=== PATIENT | female | born 1985 | race Caucasian/White ===

== ENCOUNTER 2016-08-26 15:48 | Emergency (ER) | payer MEDICAID ==
[2016-08-26 16:09] VITALS: BP 124/78
--- NOTE | 2016-08-26 18:11 | EDM.PDOC ---
ED HPI GENERAL MEDICAL PROBLEM - General Chief Complaint: General Stated Complaint: RIGHT EYE FEELS DROOPY, TINGLY SENSATION IN FACE Time Seen by Provider: 08/26/16 16:30 Source of Information: Reports: Patient History Limitations: Reports: No Limitations - History of Present Illness INITIAL COMMENTS - FREE TEXT/NARRATIVE: Brittany is a 30 year old female who presents to the ED today with c/o right eye lid drooping and tingling in right 2nd and 3rd fingers this morning that has since resolved. Patient does endorse a hx of anxiety but has never been medicated. Patient denies current symptoms or headache. Patient denies any pertinent medical hx. 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 Psychiatric History: Reports: Anxiety - Past Surgical History Female Surgical History: Reports: Other (See Below) Other Female Surgeries/Procedures: ectopic Musculoskeletal Surgical History: Reports: Other (See Below) Other Musculoskeletal Surgeries/Procedures:: multiple back surgeries Social & Family History - Tobacco Use Smoking Status *Q: Never Smoker - Caffeine Use Caffeine Use: Reports: Coffee - Alcohol Use Days Per Week of Alcohol Use: 0 - Recreational Drug Use Recreational Drug Use: No ED ROS GENERAL - Review of Systems Review Of Systems: ROS reveals no pertinent complaints other than HPI. ED EXAM, GENERAL - Physical Exam Exam: See Below Exam Limited By: No Limitations General Appearance: Alert, WD/WN, No Apparent Distress Eye Exam: Bilateral Eye: EOMI, PERRL Ears: Normal External Exam, Normal Canal, Normal TMs Head: Atraumatic Neck: Normal Inspection, Supple, Non-Tender, Full Range of Motion Respiratory/Chest: No Respiratory Distress, Lungs Clear, Normal Breath Sounds Cardiovascular: Normal Peripheral Pulses, Regular Rate, Rhythm, No Murmur GI/Abdominal: Normal Bowel Sounds, Soft, Non-Tender Extremities: Normal Inspection Neurological: Alert, Oriented, CN II-XII Intact, Normal Cognition, Normal Gait, Normal Reflexes, No Motor/Sensory Deficits Psychiatric: Normal Affect, Normal Mood Skin Exam: Warm, Dry, Intact Lymphatic: No Adenopathy Course - Vital Signs Text/Narrative:: Brittany is an otherwise healthy 30 year old female who presents to the ED today after having some reported eye lid droop on right and right 2nd and 3rd digit finger tingling this morning that has since resolved. Patient on exam here is alert and oriented, she does not have any neuro/focal dificits on exam. Remaining exam is unremarkable. It is likely that patient's anxiety is playing a role in her symptoms. CT scan of head obtained and is negative for any acute intracranial findings. Blood work today including TSH, CMP, CBC are within normal limits. Patient did inquire medication for her anxiety. She lacks a PCP. I discussed anti-depressants with her. She is open to this. I will start patient on Celexa, 10 mg for a week followed by 20 mg daily. Side effects were discussed in detail. Patient will be given clinic info for here for f/u in one week. She is agreeable to plan of care, will return to the ED with any complications. Patient discharged in stable condition. Last Recorded V/S: Last Vital Signs Temp 36.3 C 08/26/16 16:10 Pulse 68 08/26/16 16:10 Resp 20 08/26/16 16:10 BP 124/78 08/26/16 16:10 Pulse Ox 99 08/26/16 16:10 - Orders/Labs/Meds Orders: Active Orders 24 hr Category Date Time Status Head wo Cont [CT] Stat Exams 08/26/16 16:56 Taken Labs: Laboratory Tests 08/26/16 08/26/16 08/26/16 Range/Units 17:07 17:07 17:07 WBC 6.3 (4.5-11.0) K/uL RBC 4.81 (3.30-5.50) M/uL Hgb 14.1 (12.0-15.0) g/dL Hct 42.0 (36.0-48.0) % MCV 87 (80-98) fL MCH 29 (27-31) pg MCHC 34 (32-36) % Plt Count 229 (150-400) K/uL Neut % (Auto) 70 H (36-66) % Lymph % (Auto) 18 L (24-44) % [place] % (Auto) 11 H (2-6) % Eos % (Auto) 1 L (2-4) % Baso % (Auto) 0 (0-1) % Sodium 142 (140-148) mmol/L Potassium 4.2 (3.6-5.2) mmol/L Chloride 104 (100-108) mmol/L Carbon Dioxide 27 (21-32) mmol/L Anion Gap 10.8 (5.0-14.0) mmol/L BUN 7 (7-18) mg/dL Creatinine 0.7 (0.6-1.0) mg/dL Est Cr Clr Drug Dosing 105.02 mL/min Estimated GFR (MDRD) > 60 (>60) Glucose 96 (74-106) mg/dL Calcium 8.6 (8.5-10.1) mg/dL Total Bilirubin 0.9 (0.2-1.0) mg/dL AST 13 L (15-37) U/L ALT 11 L (12-78) U/L Alkaline Phosphatase 79 (46-116) U/L Total Protein 7.7 (6.4-8.2) g/dL Albumin 4.0 (3.4-5.0) g/dL Globulin 3.7 H (2.3-3.5) g/dL Albumin/Globulin Ratio 1.1 L (1.2-2.2) TSH, Ultra Sensitive 1.356 (0.358-3.740) uIU/mL HCG, Qual Negative Departure - Departure Time of Disposition: 18:30 Disposition: Home, Self-Care 01 Condition: good Clinical Impression: Anxiety - Discharge Information Forms: ED Department Discharge Additional Instructions: Brittany, Please try the Celexa for anxiety as we discussed. Establish primary care, I would like you seen for follow up in the next couple of weeks. Nice meeting you and good luck with everything. - My Orders Last 24 Hours: My Active Orders 08/26/16 16:56 Head wo Cont [CT] Stat - Assessment/Plan Last 24 Hours: My Active Orders 08/26/16 16:56 Head wo Cont [CT] Stat
== END 2016-08-26 18:27 | disposition home or self-care (01) ==
LOC: JP.ED 15:48
DX: F41.9 Anxiety disorder, unspecified (principal); Z88.5 Allergy status to narcotic agent
CPT/HCPCS: 36415; 70450; 80053; 84443; 84703; 85025; 99284-25

== ENCOUNTER 2017-02-06 14:40 | Emergency (ER) | payer MEDICAID ==
[2017-02-06 15:55] VITALS: BP 132/83
--- NOTE | 2017-02-06 16:12 | EDM.PDOC ---
ED HPI GENERAL MEDICAL PROBLEM - General Chief Complaint: ENT Problem Stated Complaint: JAW/HEAD/EAR PAIN Time Seen by Provider: 02/06/17 16:08 Source of Information: Reports: Patient History Limitations: Reports: No Limitations - History of Present Illness INITIAL COMMENTS - FREE TEXT/NARRATIVE: pt arrived with left facial pain. She states it started this am and has been persistent. . She has not had a fever and is not blowing out purulent material Onset: Today, Other ( She had a similar episode a few days ago, ) Duration: Hour(s):, Waxing/Waning Location: Reports: Face Associated Symptoms: Reports: Other (left sided facial pain. 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 Psychiatric History: Reports: Anxiety - Infectious Disease History Infectious Disease History: Reports: Chicken Pox - Past Surgical History Female Surgical History: Reports: Other (See Below) Other Female Surgeries/Procedures: ectopic Musculoskeletal Surgical History: Reports: Other (See Below) Other Musculoskeletal Surgeries/Procedures:: multiple back surgeries Social & Family History - Tobacco Use Smoking Status *Q: Never Smoker Second Hand Smoke Exposure: No - Caffeine Use Caffeine Use: Reports: Coffee - Alcohol Use Days Per Week of Alcohol Use: 0 - Recreational Drug Use Recreational Drug Use: No ED ROS ENT - Review of Systems Review Of Systems: See Below Constitutional: Reports: Other (facial pain on the left. ) HEENT: Reports: Other ( pain on the left side of her face. ) Respiratory: Reports: No Symptoms Cardiovascular: Reports: No Symptoms Endocrine: Reports: No Symptoms GI/Abdominal: Reports: No Symptoms : Reports: No Symptoms Musculoskeletal: Reports: No Symptoms Skin: Reports: No Symptoms ED EXAM, ENT - Physical Exam Exam: See Below Text/Narrative:: pt arrived with left facial pain . She is rating her pain at a 7. Exam Limited By: No Limitations General Appearance: Alert, Anxious, Mild Distress, Other (pupils equal and reactive. ) Ears: Normal TMs, TM Perforation Nose: Normal Inspection Mouth/Throat: Normal Inspection Head: Atraumatic Neck: Normal Inspection Respiratory/Chest: No Respiratory Distress Cardiovascular: Regular Rate, Rhythm GI/Abdominal: Soft, Non-Tender (Female) Exam: Deferred Rectal (Female) Exam: Deferred Back: Normal Inspection Extremities: Normal Inspection Neurological: Alert, Oriented, Normal Cognition Psychiatric: Normal Affect Course - Vital Signs Last Recorded V/S: Last Vital Signs Temp 36.4 C 02/06/17 15:50 Pulse 71 02/06/17 15:50 Resp 16 02/06/17 15:50 BP 132/83 02/06/17 15:50 Pulse Ox 99 02/06/17 15:50 - Orders/Labs/Meds Orders: Active Orders 24 hr Category Date Time Status Sinus Less 3V [CR] Stat Exams 02/06/17 16:07 Taken Labs: Laboratory Tests 02/06/17 Range/Units 16:07 WBC 6.5 (4.5-11.0) K/uL RBC 4.66 (3.30-5.50) M/uL Hgb 13.7 (12.0-15.0) g/dL Hct 41.5 (36.0-48.0) % MCV 89 (80-98) fL MCH 29 (27-31) pg MCHC 33 (32-36) % Plt Count 202 (150-400) K/uL Neut % (Auto) 77 H (36-66) % Lymph % (Auto) 15 L (24-44) % [place] % (Auto) 7 H (2-6) % Eos % (Auto) 1 L (2-4) % Baso % (Auto) 0 (0-1) % Meds: Medications Discontinued Medications Generic Name Dose Route Start Last Admin Trade Name Freq PRN Reason Stop Dose Admin Ketorolac Tromethamine 60 mg 02/06/17 16:38 Toradol IM 02/06/17 16:39 ONETIME ONE - Re-Assessments/Exams Free Text/Narrative Re-Assessment/Exam: 02/06/17 16:44 wbc is normal, ontiveros view some clouding in the left maxillary sinus. She is tender over the left maxillary sinus. Departure - Departure Time of Disposition: 16:51 Disposition: Home, Self-Care 01 Condition: Fair Clinical Impression: Left maxillary sinusitis - Discharge Information Referrals: PCP,None [Primary Care Provider] - Forms: ED Department Discharge Care Plan Goals: cool mist humidifier, moist heat to left facial area. augmentin 875 1 tab bid, tordol 10mg q5h for the next 2-3 days as needed, - My Orders Last 24 Hours: My Active Orders 02/06/17 16:07 Sinus Less 3V [CR] Stat - Assessment/Plan Last 24 Hours: My Active Orders 02/06/17 16:07 Sinus Less 3V [CR] Stat
[2017-02-06] MEDS ORDERED: Ketorolac 60 MG/2 ML SDV IM ONE (16:38)
--- NOTE | 2017-02-07 08:48 | CR ---
Sinus Less 3V INDICATION: ontiveros view FINDINGS: Maxillary and frontal sinuses are clear. Ethmoid sinuses appear patent. No evidence for rad iopaque foreign body. Exam otherwise unremarkable.
== END 2017-02-06 17:11 | disposition home or self-care (01) ==
LOC: JP.ED 14:40
DX: J32.0 Chronic maxillary sinusitis (principal); F41.9 Anxiety disorder, unspecified; Z88.5 Allergy status to narcotic agent; Z79.899 Other long term (current) drug therapy
CPT/HCPCS: 36415; 70210; 85025; 96372; 99284; J1885

== ENCOUNTER 2017-02-10 04:00 | Emergency (ER) | payer MEDICAID ==
[2017-02-10 04:14] VITALS: BP 130/75
--- NOTE | 2017-02-10 04:33 | EDM.PDOC ---
ED HPI GENERAL MEDICAL PROBLEM - General Chief Complaint: General Stated Complaint: JAW/HEAD PAIN Time Seen by Provider: 02/10/17 04:30 Source of Information: Reports: Patient History Limitations: Reports: No Limitations - History of Present Illness INITIAL COMMENTS - FREE TEXT/NARRATIVE: pt is still having severe left sided facial pain extending to the side of her head. Onset: Other ( several days. ) Duration: Getting Worse, Other ( The pain has been worse today. ) Location: Reports: Face Quality: Reports: Pressure, Other ( deep ache not lke a electric shock type pain. 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 Psychiatric History: Reports: Anxiety - Infectious Disease History Infectious Disease History: Reports: Chicken Pox - Past Surgical History Female Surgical History: Reports: Other (See Below) Other Female Surgeries/Procedures: ectopic Musculoskeletal Surgical History: Reports: Other (See Below) Other Musculoskeletal Surgeries/Procedures:: multiple back surgeries Social & Family History - Tobacco Use Smoking Status *Q: Never Smoker Second Hand Smoke Exposure: No - Caffeine Use Caffeine Use: Reports: Coffee - Alcohol Use Days Per Week of Alcohol Use: 0 - Recreational Drug Use Recreational Drug Use: No ED ROS GENERAL - Review of Systems Review Of Systems: See Below Constitutional: Reports: No Symptoms HEENT: Reports: Other ( pain on the left side of the face. ) Respiratory: Reports: No Symptoms Cardiovascular: Reports: No Symptoms Endocrine: Reports: No Symptoms GI/Abdominal: Reports: No Symptoms : Reports: No Symptoms ED EXAM, GENERAL - Physical Exam Exam: See Below Free Text/Narrative:: pt is having severe left sided facial pain. This starts at the ear and radiates forward. Sh is on augmentin and has been using torodol for pain. Exam Limited By: No Limitations General Appearance: Alert, Moderate Distress Ears: Normal TMs Nose: Normal Inspection Throat/Mouth: Normal Inspection, Other ( tmj area is not extremely tender, ) Head: Atraumatic Neck: Normal Inspection Respiratory/Chest: No Respiratory Distress Course - Vital Signs Last Recorded V/S: Last Vital Signs Temp 36.1 C 02/10/17 04:13 Pulse 82 02/10/17 04:13 Resp 16 02/10/17 04:13 BP 130/75 02/10/17 04:13 Pulse Ox 99 02/10/17 04:13 - Orders/Labs/Meds Labs: Laboratory Tests 02/10/17 02/10/17 Range/Units 04:30 04:30 WBC 6.5 (4.5-11.0) K/uL RBC 4.60 (3.30-5.50) M/uL Hgb 13.8 (12.0-15.0) g/dL Hct 41.3 (36.0-48.0) % MCV 90 (80-98) fL MCH 30 (27-31) pg MCHC 33 (32-36) % Plt Count 173 (150-400) K/uL Neut % (Auto) 64 (36-66) % Lymph % (Auto) 24 (24-44) % [place] % (Auto) 10 H (2-6) % Eos % (Auto) 2 (2-4) % Baso % (Auto) 0 (0-1) % C-Reactive Protein 0.07 (0.0-0.3) mg/dL - Re-Assessments/Exams Free Text/Narrative Re-Assessment/Exam: 02/10/17 05:06 Pt had a wbc which was normal and her crp was normal. A cat scan of the head did not show sinus problems or any other acute abnormalities. Departure - Departure Time of Disposition: 05:03 Disposition: Home, Self-Care 01 Condition: Fair Clinical Impression: Facial pain - Discharge Information Instructions: Sinus Headache Referrals: PCP,None [Primary Care Provider] - Forms: ED Department Discharge Care Plan Goals: motrin 600mg tid, finish the augmentin, appt with ENT next visit here, norco 5/ 325 q6h prn for pain.
== END 2017-02-10 05:20 | disposition home or self-care (01) ==
LOC: JP.ED 04:00
DX: R51 Headache (principal); F41.9 Anxiety disorder, unspecified; Z79.899 Other long term (current) drug therapy; Z88.5 Allergy status to narcotic agent
CPT/HCPCS: 36415; 70450; 85025; 86140; 99284-25